=== PATIENT | female | born 1955 | race African-American/Black ===

== ENCOUNTER 2024-04-02 14:26 | Emergency (ER) | payer MEDICARE ==
[~2024-04-02] VITALS: Ht 165.1 cm; Wt 102.0 kg
[2024-04-02 14:29] VITALS: O2SAT 99
[2024-04-02 14:33] VITALS: BP 138/88; PULSE 88; RESP 16; TEMP 97.9; O2SAT 99
== END 2024-04-02 14:57 | disposition home or self-care (01) ==
LOC: ER 14:26
DX: M54.50 Low back pain, unspecified (principal); W01.0XXA Fall on same level from slipping, tripping and stumbling without subsequent striking against object, initial encounter; Y93.89 Activity, other specified; Y92.89 Other specified places as the place of occurrence of the external cause; Y99.8 Other external cause status
CPT/HCPCS: 99282